=== PATIENT | male | born 1980 | race Caucasian/White ===

== ENCOUNTER 2020-04-04 07:04 | Emergency (ER) | payer BC ==
--- NOTE | 2020-04-04 07:44 | EDM.PDOC ---
ED HPI GENERAL MEDICAL PROBLEM - General Chief Complaint: Neck Problem Stated Complaint: BACK PAIN /NECK PAIN Time Seen by Provider: 04/04/20 07:10 Source of Information: Reports: Patient, Family History Limitations: Reports: No Limitations - History of Present Illness INITIAL COMMENTS - FREE TEXT/NARRATIVE: 39-year-old male that has had a persistent neuropathy-like syndrome in the past 6 months with occasional flareups of pain in his shoulders radiating down his arm. For the last 24 hours he has had left lower neck and upper thoracic pain and if he moves his neck in a certain way he gets a shot of pain down his arm into his pinky finger. He has a hard time extending his neck and lifting his head fully to look straight forward. Last time this happened he responded to prednisone. No specific traumatic injury. Onset: Unknown/Unsure Duration: Waxing/Waning (Symptoms wax and wane for the past 6 months) Location: Reports: Neck, Upper Extremity, Left - Related Data Allergies Allergy/AdvReac Type Severity Reaction Status Date / Time No Known Allergies Allergy Verified 04/04/20 07:21 Home Meds: Home Meds NK [No Known Home Meds] 04/04/20 [History] Past Medical History Musculoskeletal History: Reports: Fracture - Infectious Disease History Infectious Disease History: Reports: Chicken Pox - Past Surgical History GI Surgical History: Reports: Hernia, Abdominal Social & Family History - Caffeine Use Caffeine Use: Reports: Coffee - Recreational Drug Use Recreational Drug Use: No ED ROS GENERAL - Review of Systems Review Of Systems: See Below Constitutional: Denies: Fever, Chills HEENT: Denies: Vision Change Respiratory: Denies: Shortness of Breath GI/Abdominal: Denies: Abdominal Pain, Nausea, Vomiting Musculoskeletal: Reports: Neck Pain, Shoulder Pain Skin: Reports: No Symptoms Neurological: Reports: Other (Sudden neuropathy-like symptoms in the left arm with certain neck movement) Psychiatric: Reports: No Symptoms ED EXAM, UPPER BACK/NECK PAIN - Physical Exam Exam: See Below Exam Limited By: No Limitations General Appearance: Alert, No Apparent Distress, Other (Holding his head slightly flexed which is his most comfortable position) Head Exam: Atraumatic Neck Exam: Other (Some mild increased tenderness with palpation to the paracervical muscles on the left side just above the scapula, increased pain with extension of the neck) Cardiovascular/Respiratory: No Respiratory Distress Extremities: Other (Strength of the upper extremities is equal, he does have full range of motion of both right and left arm and shoulder) Neurologic: No Motor/Sensory Deficits, Oriented x 3 Course - Vital Signs Last Recorded V/S: Last Vital Signs Temp 96.7 F L 04/04/20 07:24 Pulse 74 04/04/20 07:24 Resp 18 04/04/20 07:24 BP 135/78 04/04/20 07:24 Pulse Ox 98 04/04/20 07:24 - Re-Assessments/Exams Free Text/Narrative Re-Assessment/Exam: 04/04/20 07:42 We will be placed on a Medrol Dosepak that he can take as directed and recheck in 4 to 6 days if not improving satisfactorily. Departure - Departure Time of Disposition: 07:51 Disposition: Home, Self-Care 01 Clinical Impression: Neck pain on left side - Discharge Information Instructions: Radicular Pain Referrals: PCP,None [Primary Care Provider] - Forms: ED Department Discharge Care Plan Goals: Increase activity and range of motion as tolerated, take Medrol Dosepak as prescribed and consider rechecking in 3 to 4 days if not improving satisfactorily. Anti-inflammatory such as ibuprofen or naproxen may be helpful as well. Sepsis Event Note (ED) - Evaluation Sepsis Screening Result: No Definite Risk - Focused Exam Vital Signs: Vital Signs Temp Pulse Resp BP Pulse Ox 04/04/20 07:24 96.7 F L 74 18 135/78 98 04/04/20 07:20 96.7 F L 74 18 135/78 98
== END 2020-04-04 07:51 | disposition home or self-care (01) ==
LOC: JP.ED 07:04
DX: M54.2 Cervicalgia (principal)
CPT/HCPCS: 99283